=== PATIENT | female | born 1940 | race Caucasian/White ===

== ENCOUNTER → 2024-12-05 12:43 | Outpatient (REF) | payer MEDICARE, SELFPAY | LOC: RAD 12:43 | PROVIDERS: ATTENDING PHYSICIAN Internal Medicine Interventional Cardiology; FAMILY PHYSICIAN Family Medicine | DX: I35.0 Nonrheumatic aortic (valve) stenosis (principal) | CPT/HCPCS: 74174; 75572; Q9967 ==

== ENCOUNTER 2025-01-03 09:29 | Day surgery (SDC) | payer MEDICARE, SELFPAY ==
[2025-01-03] VITALS (24 sets, daily range): BP systolic 107–173; BP diastolic 60–95; BMI 34.5
--- NOTE | 2025-01-03 10:04 | ITS.CL.CATH ---
[facility] - Catheterization
Cardiac Catheterization
Procedure Report:
LEFT AND RIGHT HEART CATHETERIZATION
Date of Procedure: January 03, 2025
Referring: Dr. Dunia Savage MD
PROCEDURES:
1. Left heart catheterization, coronary angiogram.
2. Moderate sedation.
3. Right heart catheterization.
4. Intravascular Ultrasound (IVUS)
INDICATION: Ms. Ervin is a 84-year-old female with past medical history of hypertension, hyperlipidemia, paroxysmal atrial fibrillation on chronic anticoagulation with Xarelto, morbid obesity, stage IIIb CKD secondary to longstanding hypertension,
prediabetes, mild memory deficits, acquired hypothyroidism, bilateral carotid artery stenosis status post left carotid endarterectomy and right carotid stent, severe aortic stenosis with most recent echocardiogram showing a peak and mean transaortic
gradients of 72 and 46 mmHg
ACCESS: Right radial artery, 6Fr. sheath, under US guidance.
HEMODYNAMICS : (mmHg)
RA (m) : 13
RV (s/d,m) : 49/9, 17
PA (s/d, m) : 45/22, 30
PCWP (m) : 22
PA saturation: 67.5% on room air
AO saturation: 95.6% on room air
RA saturation: on room air
Cardiac Output : 6.79 L/min by Rodríguez
Cardiac Index : 3.5 L/min/m-2 by Rodríguez
Systemic vascular resistance: 990 dsc^(-5)
Pulmonary vascular resistance: 1.18 rocha unit
AO (s/d) : 182/67
LVEDP : 27
Severe aortic stenosis with mean gradient of 58mmHg and SARAH 0.52cm2
CORONARY FINDINGS
Dominance: Right
Left Main Trunk (LMT): The left main artery is a large-caliber vessel that gives off the LAD, left circumflex and ramus intermedius arteries. The ostial left main has eccentric 20 to 30% stenosis with a minimal luminal area by intravascular
ultrasound of 10 mm�.
Left Anterior Descending Artery (LAD): Large caliber tortuous vessel that gives off a large caliber diagonal as it continues in the interventricular groove to wraparound the apex. The LAD at the diagonal takeoff has a 30 to 40% stenosis. The
ostial diagonal branch has 20 to 30% stenosis
Ramus Intermedius (RI): The ramus intermedius artery is a medium caliber vessel with ostial 70% stenosis
Left Circumflex Artery (LCx): The left circumflex artery gives off a small caliber obtuse marginal branch and 2 medium caliber left posterolateral branches with no obstructive coronary artery disease. Moderately tortuous coronary arteries.
Right Coronary Artery (RCA): Large-caliber dominant vessel with mild 20% stenosis in the proximal portion.
SEDATION: 47 minutes of procedural sedation was utilized. IV Midazolam and IV Fentanyl were administered. An independent medical educator was present to assist with and help manage the patient's level of consciousness and physiologic status.
Closure Device: There were no immediate intra-procedural complications. The sheath was pulled in the slabber and a vascular-band applied to the right wrist for radial artery hemostasis using the patent hemostasis technique.
CONCLUSIONS
1. The ostial left main has eccentric 20 to 30% stenosis with a minimal luminal area by intravascular ultrasound of 10 mm�.
2. The LAD at the diagonal takeoff has a 30 to 40% stenosis. The ostial diagonal branch has 20 to 30% stenosis.
3. The ramus intermedius artery is a medium caliber vessel with ostial 70% stenosis.
4. Severe aortic stenosis with mean gradient of 58mmHg and SARAH 0.52cm2
RECOMMENDATIONS
1. Wean radial band per protocol. Monitor right hand perfusion and for bleeding from the radial site following removal of the vascular-band following trans-radial access.
2. Continue aggressive medical therapy and risk factor modification for secondary CAD prevention.
3. Hydrate with normal saline to mitigate the risk of contrast-induced acute kidney injury.
4. Plan for outpatient CT surgery consult to complete heart team workup in regards to transcatheter aortic valve replacement and discussion at the neck structural meeting
Smita Samayoa MD, [facility], [facility]
Copy to: Dr. Dunia Savage MD (crackling press operator) and Neftali Lindsay MD (PCP)
[2025-01-03 10:11] LABS: Hematocrit 30.6 % (37.0-47.0); Hemoglobin 10.0 g/dL (12.0-16.0); Mean Corp Hgb Conc. 32.7 g/dL (33.0-37.0); Mean Corpuscular Volume 90.3 fL (81.0-99.0); Platelet Count 227 10^3/uL (130-400); Red Cell Dist. Width 15.8 % (11.5-14.5)
[2025-01-03] MEDS: LOW STRENGTH ASPIRIN 324 MG PO (10:11)
[2025-01-03] MEDS: NSS 1000 IV (10:30)
[2025-01-03 13:07] LABS: ACT-LR - POC 334 Seconds (116-155)
[2025-01-03] MEDS: LASIX 20 MG IV (14:50)
== END 2025-01-03 19:38 | disposition home or self-care (01) ==
LOC: CATH 09:29
PROVIDERS: ATTENDING PHYSICIAN Internal Medicine Interventional Cardiology; FAMILY PHYSICIAN Orthopaedic Surgery Sports Medicine; OTHER PHYSICIAN Internal Medicine Cardiovascular Disease
DX: I25.10 Atherosclerotic heart disease of native coronary artery without angina pectoris (principal); I48.0 Paroxysmal atrial fibrillation; I10 Essential (primary) hypertension; Z79.01 Long term (current) use of anticoagulants; R73.03 Prediabetes; E78.5 Hyperlipidemia, unspecified; I65.23 Occlusion and stenosis of bilateral carotid arteries; I35.0 Nonrheumatic aortic (valve) stenosis
CPT/HCPCS: 92978; 99152; 99153; 85027; 93460; C1753; C1769; C1894

== ENCOUNTER 2025-01-08 09:40 | Emergency (ER) | payer MEDICARE, SELFPAY ==
[2025-01-08 09:43] VITALS: BP 214/79
[2025-01-08 11:14] VITALS: BP 165/112
--- NOTE | 2025-01-08 12:15 | ED.GENMED ---
History of Present Illness
General
Chief Complaint: Vascular Symptoms
Time Seen by Provider: 01/08/25 11:06
History of Present Illness
History of Present Illness:
84-year-old female presents to the emergency department for evaluation of right wrist and forearm pain and swelling for the past 5 days since undergoing cardiac catheterization via right radial approach. Pain is progressed up the arm since that
time. She has been on Xarelto since her catheterization. Denies any paresthesias or fingers. No fevers or chills
Review of Systems
Review of Systems
Allergies reviewed?: Yes
All Other Systems: ROS reviewed and negative except as documented in HPI and ROS
Phy Exam
Physical Exam
Physical Exam:
GEN: Well appearing, NAD, WDWN
HEENT: Oral mucosa moist, no scleral icterus
Cardiac: Regular rate
Lung: No respiratory distress, no tachypnea
MSK: Widespread ecchymosis extending from the right radial wrist to the mid upper arm, induration and tenderness particularly at the right radial access point
Skin: Good color, no pallor or jaundice, no rashes
Neuro: AO x3, moves all extremities freely
Psych: Calm, cooperative
Course
Orders/Labs/Results
Orders:
Orders
01/08/25 11:35
Vascular Exam Limited US [US Vascular Exam Limited] Urgent
Comment:
Reason For Exam: R radial cath site possible pseudo
Vital Signs
Initial and Last Documented VS:
Initial Vital Signs
Pulse Resp BP Pulse Ox
84 20 214/79 86
01/08/25 09:43 01/08/25 09:43 01/08/25 09:43 01/08/25 09:43
Last Documented Vital Signs
Pulse Resp BP Pulse Ox
77 20 165/112 86
01/08/25 11:14 01/08/25 09:43 01/08/25 11:14 01/08/25 12:16
MDM/Problems Addressed
MDM/Problems Addressed:
Ultrasound shows no evidence for pseudoaneurysm, bruising and ecchymosis is most likely on the basis of vascular trauma during her catheterization. Recommend supportive care
*Pulse Oximetry
SaO2: 86
Oxygen Mode of Delivery: Room air
Patient hypoxic: no
*Critical Care Note
Total Time (30-74mins, 75-104mins- exclusive of procedures): Not Applicable
ED Attending Note
-
Portions of this chart may have been created with voice recognition software.� Occasional wrong word or��sound alike� substitutions may have occurred due to the inherent limitations of voice recognition software.
Discharge Plan
Departure
Patient Disposition: Home (Routine Discharge)
Date of Disposition: 01/08/25
Time of Disposition: 13:07
Patient with high blood pressure during this ER visit?: No
Discharge Problem:
Traumatic ecchymosis of right forearm
Instructions: Wound Care for Arterial Puncture (DC)
Prescriptions:
No Action
lisinopril 20 mg Tablet
20 mg PO BID
famotidine 40 mg Tablet
40 mg PO DAILY PRN (Reason: gerd)
allopurinol 100 mg Tablet
100 mg PO DAILY
pantoprazole 20 mg Tablet,Delayed Release (Dr/Ec)
20 mg PO DAILY
metoprolol tartrate 50 mg Tablet
50 mg PO BID
furosemide [Lasix] 20 mg Tablet
20 mg PO DAILY
calcium carbonate-vitamin D3 500 mg-3.125 mcg (125 unit) Tablet
1 tab PO DAILY
vitamin M92-ulbcf acid
1,000 mcg PO DAILY
rosuvastatin 20 mg tablet
20 mg PO DAILY Qty: 30 5RF
rivaroxaban [Xarelto] 15 mg tablet
15 mg PO QPM Qty: 90 5RF
Referrals:
Luigi Lindsay MD [Family Provider, Family Practice]
Activity Restrictions/Additional Instructions:
Keep arm elevated and ice often
Use wrist brace as needed for comfort
Follow up with your facility sales and admin/cardiac surgeon
Interventions
Interventions:
*Risk Screen - Suicide Last Done: 01/08/25 11:16
*General Assessment Last Done: 01/08/25 11:16
*Neglect/Abuse Screening Last Done: 01/08/25 11:16
*ED- Fall Risk Assessment Last Done: 01/08/25 11:16
*Nursing Disposition Last Done: 01/08/25 13:44
ED-Skin Assessment Last Done: 01/08/25 11:14
ED-Peripheral Vascular Assessment Last Done: 01/08/25 11:14
ED- Pulmonary Assessment Last Done: 01/08/25 11:17
ED- Cardiac Assessment Last Done: 01/08/25 11:17
Discharge Date and Time
Discharge Date/Time: 01/08/25 13:45
Print Language: QATARI
== END 2025-01-08 13:45 | disposition home or self-care (01) ==
LOC: EMR 09:40
PROVIDERS: EMERGENCY PHYSICIAN Emergency Medicine; FAMILY PHYSICIAN Family Medicine
DX: S50.11XA Contusion of right forearm, initial encounter (principal); L76.32 Postprocedural hematoma of skin and subcutaneous tissue following other procedure; Y84.0 Cardiac catheterization as the cause of abnormal reaction of the patient, or of later complication, without mention of misadventure at the time of the procedure; Z79.01 Long term (current) use of anticoagulants
CPT/HCPCS: 99284; 93926

== ENCOUNTER 2025-02-22 04:57 | Outpatient (REF) | payer MEDICARE, SELFPAY ==
[2025-02-13 09:33] VITALS: BMI 34.3
[2025-02-13 10:35] LABS: Urine Character Clear (Clear)
[2025-02-13 10:42] LABS: INR 1.14; PT 14.9 Sec (11.4-14.6)
[2025-02-13 10:58] LABS: Hematocrit 28.8 % (37.0-47.0); Hemoglobin 9.6 g/dL (12.0-16.0); Mean Corp Hgb Conc. 33.3 g/dL (33.0-37.0); Mean Corpuscular Volume 92.0 fL (81.0-99.0); Nucleated Red Blood Cells % 0 %; Platelet Count 207 10^3/uL (130-400); Red Cell Dist. Width 15.9 % (11.5-14.5)
[2025-02-13 11:01] LABS: ALT (SGPT) 16 U/L (0-35); AST (SGOT) 21 U/L (14-36); Albumin 3.7 g/dl (3.5-5.0); Alkaline Phosphatase 76 U/L (38-126); Blood Urea Nitrogen 37 mg/dl (7-17); Calcium 9.7 mg/dl (8.4-10.2); Carbon Dioxide 24 mmol/L (22-30); Chloride 109 mmol/L (98-107); Estimated Creatinine Clearance 34 ml/min; Glucose 85 mg/dl (70-99); Potassium 4.7 mmol/L (3.5-5.1); Sodium 138 mmol/L (135-145); Total Protein 6.3 g/dl (6.3-8.2); eGFR 40.80
--- NOTE | 2025-02-13 11:37 | CM ---
Met with Mrs. Ervin and her [id number] in [facility]. She states prior to admission she resides with her spouse in a one stroy home with four steps to enter. She states prior to admission she ambulates with a single point cane in the community but
does not use anything in the home. She states she has a single point cane at home and no other DME. She states she has a prescription plan. She states her spouse will be home to assist in her care if needed. She also states her son and
[id number] resides nearby and can assist also if needed. The discharge plan is to return home with her spouse and a home visit by the Transitional Care Nurse when medically stable.
We reviewed pre-op and post-op routines. We reviewed the shower instructions. She has the soap, written instructions and the TAVE Educational Booklet. We also reviewed restrictions including driving and lifting restrictions. We discussed a home
visit by the Transitional Care Nurse. She is agreeable to a home visit. The plan is for TAVR on February.
[2025-02-13 11:46] LABS: Glycohemoglobin (HgbA1c) 5.5 % (4.0-5.6)
[2025-02-13 12:00] LABS: Urine Squamous Cell 16-20 /LPF (Few)
[2025-02-13 12:01] LABS: Urine Red Blood Cell 0-2 /HPF (0-2)
[2025-02-22 05:05] VITALS: BMI 34.0
[2025-02-22 05:08] VITALS: BP 155/66
[2025-02-22 05:11] VITALS: BP 169/56
--- NOTE | 2025-02-22 06:14 | PTCARENOTE ---
Patient received as direct admit for TAVR procedure today. Ambulated independently with a cane into the room. Required some assistance to get undressed. Voided in the bathroom without difficulty but does report some stress incontinence. The patient
is alert to self, place, and time but does seem forgetful. The patient reported conflicting last taken times for her medications including metoprolol and lisinopril. She initially reported taking metoprolol and lisinopril this morning and then later
reported she took them yesterday. The patient did not take aspirin this morning. She did report taking Xarelto yesterday. CT surgery SOFIA Katz notified regarding the medications. A bed alarm was placed due to forgetfulness. Pupils are 5mm,
equal, and brisk. Equal supercharger mechanic strength bilaterally upper and lower extremities. HR 90s, murmur noted, +1 LE pitting edema noted, pedal pulses palpable. Right base with fine crackles, SaO2 99% on room air. The patient endorses being NPO since
midnight. Right wrist 20G PIV placed. Surgical site clipped. CHG bath completed. Plan of care discussed. Call gallardo within reach. Care ongoing.
--- NOTE | 2025-02-22 06:52 | W.DCSUMMARY ---
Discharge Summary
Discharge Data
Date of Admission: 02/22/25
Date of Discharge: 02/22/25
-
Pending Results: No
Hospital Course
84-year-old female was admitted for elective TAVR on 02/22/2025. However patient states she had taken last dose of Xarelto yesterday. Drs. Samayoa/Zaira cancelled procedure and [id number] notified. TAVR procedure rescheduled for 02/28/2025. Last
dose of Xarelto will be 02/24/2025.
Discharge Plan
-
Patient Disposition: Home (Routine Discharge)
Discharge Diagnosis/Procedures: TF-TAVR
Condition: Good
Diet: Low Cholesterol and 2 Gram Sodium
Activity: As tolerated
Driving Restrictions: As prior to admission
Bathing Restrictions: OK to Shower
Others Tests: Please call Dr. Savage's office to schedule an echocardiogram for 30 days after your TAVR procedure.
Other Services: Cardiac Rehab
Wound Care: Please do not apply lotions, creams or powders to groin areas. Please monitor for increased redness, pain, swelling or drainage. Notify your doctor if any occur.
Specialty Instructions: Weigh Daily- Call MD for wt gain/loss 3 lbs overnight/5 lbs in 1 week
Referrals:
Luigi Lindsay MD [Family Provider, Family Practice]
Additional Discharge Medication Instructions: last dose Xarelto 02/24>rescheduled TAVR 02/28
Prescriptions:
Continued
famotidine 40 mg Tablet
40 mg PO DAILY PRN (Reason: gerd)
allopurinol 100 mg Tablet
100 mg PO DAILY Qty: 0 0RF
calcium carbonate-vitamin D3 500 mg-3.125 mcg (125 unit) Tablet
1 tab PO DAILY Qty: 0 0RF
furosemide [Lasix] 20 mg Tablet
20 mg PO DAILY Qty: 0 0RF
lisinopril 20 mg Tablet
20 mg PO BID Qty: 0 0RF
metoprolol tartrate 50 mg Tablet
50 mg PO BID Qty: 0 0RF
pantoprazole 20 mg Tablet,Delayed Release (Dr/Ec)
20 mg PO DAILY Qty: 0 0RF
vitamin M29-puvdu acid
1,000 mcg PO DAILY Qty: 0 0RF
rosuvastatin 20 mg tablet
20 mg PO DAILY Qty: 30 5RF
Xarelto 15 mg tablet
15 mg PO QPM Qty: 90 5RF
Discharge Orders:
Discharge Patient (As Directed); Ordered 02/22/25
Ordered By: Sylvia Allen
Discharge Date and Time
Print Language: MOHAWK
[2025-02-22 07:15] VITALS: BP 155/61
[2025-02-22 07:16] VITALS: BP 155/61
--- NOTE | 2025-02-22 09:00 | PTCARENOTE ---
Pt received this am with no c/o of any pain or sob. Room air sat 98%. TAVR cancelled and rescheduled for next week due to pt being unsure when she last took her xarelto. Pt discharged to home with her daughter in law. Pt and daughter in law
instructed on when to stop the xarelto for upcoming TAVR.
== END 2025-02-22 08:42 | disposition home or self-care (01) ==
LOC: SDSPAT 04:57
PROVIDERS: ATTENDING PHYSICIAN Thoracic Surgery (Cardiothoracic Vascular Surgery); FAMILY PHYSICIAN Family Medicine; OTHER PHYSICIAN Internal Medicine Cardiovascular Disease
DX: I35.0 Nonrheumatic aortic (valve) stenosis (principal)
CPT/HCPCS: 36415; 71046; 80053; 81003; 81015; 82248; 83036; 83880; 85025; 85610; 86850; 86900; 86901; 86920; 87070; 87086; 93005

== ENCOUNTER 2025-02-28 04:57 | Inpatient (IN) | payer MEDICARE, SELFPAY ==
[2025-02-28] VITALS (39 sets, daily range): BP systolic 98–183; BP diastolic 34–111; BMI 33.6
[2025-02-28] MEDS: LOW STRENGTH ASPIRIN 81 MG PO (05:06)
--- NOTE | 2025-02-28 05:59 | PTCARENOTE ---
Rec'd pt as SDS admission for TAVR. PT AAO*3 but forgetful, SR on TELE monitor, and VSS. Pt admission complete, IV initiated, and pt oriented to unit. Surgical prep complete including groin hair being clipped and CHG bathing clothes. Pt and
daughter confirmed home medication rec. Pt given ASA 81 Mg as ordered. PT neuro check complete. Pt now resting with call gallardo in reach.
--- NOTE | 2025-02-28 06:21 | W.CVOR.SURPR ---
CVOR Surgeon Immed Pre Op
-
I have examined this patient prior to performance of the scheduled procedure.
The patient's condition is unchanged from the time of the dictated/written History and
Physical and the patient is able to undergo the scheduled procedure.
TF TAVR Full Rescue
[2025-02-28] MEDS: ANCEF 10 IV ×2 (07:43→08:43)
[2025-02-28 08:40] LABS: ACT-LR - POC 295 Seconds (116-155)
--- NOTE | 2025-02-28 08:54 | W.PN.CT.SURG ---
Addendum entered and electronically signed by Luigi Meneses MD 02/28/25 09:15:
Serial #: [id number]
Original Note:
CT Surgery Operative Note
-
OPERATIVE REPORT
Preoperative Diagnosis: Severe aortic valve stenosis, symptomatic
Postoperative Diagnosis: Same
Procedure(s) Performed: Right trans femoral TAVR with a 29mm Medtronic Evolut FX+ device with Balloon Valvuloplasty using a 20mm balloon
Date of Procedure: 02/28/25
Comorbidities:
1. Severe symptomatic aortic stenosis
2. CKD
3. Baseline anemia
4. Hypertension
5. Hyperlipidemia
6. A-fib on chronic anticoagulation
Cardiac Surgeon: Luigi Meneses MD, MS
Online Editor: Smita Samayoa MD
Anesthesia: Conscious Sedation, Local
EBL: 100cc
Products: none
Implant: Medtronic Evolut 29 mm, FX+ SN: [id number]
Indication(s) for Procedures: 84-year-old female with severe aortic stenosis. Symptomatic. CT-TAVR protocol revealed acceptable anatomy for a self-expanding TAVR valve.
TAVR gradient (mmHg): 7-9mmHg
Heparin Dose: 6000units
Protamine Dose: 40mg
Final Valve Positioninmm:2mm
Findings: Preoperative LVEF was 65% and was 65% following TAVR without inotropic support. Function was overall normal without regional wall motion abnormalities or dyskinesia. The aortic valve was well seated with no PVL. The patient did not require
pacing postoperative and was in sinus rhythm. There was successful placement of 29 mm Evolut FX+ TAVR valve without acute complications. LVEDP was found to be 22 mmHg pre-TAVR deployment indicating is that she was likely dehydrated and needed
volume.
Access:
1. Device -right common femoral artery, perclose x 3 (initial 1 was thought to have failed)
2. Pigtail -left common femoral artery + 6Fr angioseal
3. Transvenous Pacer -left common femoral vein
Description of Procedure: The patient was taken to the laboratory equipment cleaner. Their identity and procedure to be performed were verified and they were positioned supine on the laboratory equipment cleaner table. Induction via conscious sedation with local analgesia. The patient was
then prepped and draped from chin to thigh in a sterile fashion. A preoperative time-out was performed with all members of the team present. Using fluoroscopy, bilateral femoral heads and their margins were identified. Arterial and venous access
were done with a micropuncture needle with Seldinger technique. Test pacing revealed capture with excellent threshold. Angiography confirmed proper puncture site and femoral artery integrity. 3 Per-Close devices were used on the TAVR side. An AL1
catheter was used to deliver a extrastiff wire and insertion of the working sheath. An AL1 catheter with a straight stiff wire was used to access the LV. The valve was prepped and mounted on to the device carrier. An ACT of >250 was achieved. We
verified x 3 under fluoroscopy that the valve was mounted correctly with paddles in appropriate position. We than set our parameters to achieve a co-planar view with the pigtail positioned in the NCC. The balloon was then inserted into the working
sheath and across the shoalwater valve. Under rapid pacing under 80 beats minute we did a balloon valvuloplasty with good effect. There was rapid recovery of vital signs. We then replaced the working sheath for the device inline sheath. We advanced
the device with it's in-line sheath into the descending thoracic aorta and over the arch into the root and positioned across the aortic valve. Contrast fluoroscopy was used to visualize the prosthesis across the valve. We performed a quick
pre-deployment time out. We verified positioning based on the pigtail and gentle contrast puffs. The valve was slowly deployed to just before annular contact. We paused here and verified positioning in our cusp overlap view. We then rotated SUDANESE and
removed any parallax from the valve. Contrast was used to verify the LCC was appropriate in height. It was and so we slowly continued to deploy the valve until the crowns and paddles were free from the device. At this point the valve was functioning
and pacing was stopped. We slowly continued to deploy the valve until the crowns and paddles were free from the device. The deployment device was withdrawn into the descending thoracic aorta while maintaining wire access across the valve. A
transthoracic echocardiogram was performed . The pigtail was re-positioned at the level of the crown of the valve and angiography revealed excellent placement and seating of the valve at the annulus. The device was removed from the groin as we
cinched down the perclose devices while maintaining wire access. There was acceptable hemostasis. The pigtail was repositioned into the descending/abdominal and runoff aortogram was performed. There was no significant stenosis or dissection of the
bilateral iliofemoral systems with excellent runoff to the SFAs. All wires were removed and perclose snugged and cut. There was acceptable hemostasis of bilateral groins.
All instrument, sponge, and needle counts were confirmed to be correct x 2 at the end of the operation. The patient was transferred to the cardiac intensive care unit in stable condition.
I, Dr. Luigi Meneses, was present, scrubbed for, and performed all critical elements of this procedure.
Luigi Meneses MD, MS
Cardiothoracic Surgeon
[facility]
This operative dictation was created using the [employer] dictation system. Please excuse any grammatical, typographical, or 'sound alike' errors
[2025-02-28] MEDS: LEVOPHED 250 IV (09:42)
--- NOTE | 2025-02-28 09:50 | ITS.CL.TAVR ---
Diagnostic Assistant - TAVR Report
TAVR PRocedure
Procedure Report:
TRANSCATHETER AORTIC VALVE REPLACEMENT
Date of Procedure: February 28, 2025
Referring: Dunia Savage MD
Operators: Drs. Smita Samayoa and Luigi Meneses
PROCEDURE PERFORMED:
1. Successful placement of 29 mm Medtronic Evolut FX+ valve viaright femoral artery.
2. Ultrasound-guided access.
3. Bilateral femoral angiography.
ACCESS:
1. Right common femoral artery, 8 Samoan sheath, under ultrasound guidance using a micropuncture kit.
2. Left common femoral vein, 6 Samoan sheath, under ultrasound guidance using a micropuncture kit.
3. Left common femoral artery, 6 Samoan sheath, under ultrasound guidance using a micropuncture kit.
Ultrasound was utilized for vascular access. The right and left femoral artery and vein were visualized under ultrasound, and the vessels was patent and arteries were pulsatile. An image was stored permanently in the patient's medical record.
Under direct ultrasound guidance, sheaths as noted above were inserted into the right FA and left femoral artery and vein using a micropuncture kit through a modified Seldinger technique.
PREPROCEDURE NYHA CLASS: II
DESCRIPTION OF PROCEDURE: The patient was referred for assessment of severe symptomatic aortic stenosis and following a comprehensive evaluation it was felt that transcatheter aortic valve replacement (TAVR) would be the most appropriate treatment.
Informed consent was obtained prior to the procedure. A 'time-out' was called and the procedural plan was verbally confirmed by anesthesia, surgery, perfusion, and center medical and lab director staff.
Arterial and venous access were obtained in the left common femoral artery and vein using a micropuncture technique and 6 Fr. sheaths were inserted. A 5 Fr. transvenous pacing wire was then advanced to the right ventricle where excellent pacing
thresholds were obtained.
A 5 Fr. pigtail catheter was then advanced to the proximal ascending aorta / noncoronary cusp where angiography was performed to define the the cusp overlap view isolating the non-coronary cusp with overlap of the right and left coronary cusps. The
cusp overlap view was RAO10 / CAU 27.
Ultrasound guidance was then used to obtain arterial access in the right common femoral artery and a 6 Fr. sheath was inserted. Angiography was performed and the arteriotomy site appeared appropriate for preclosure with two Perclose devices. An 8
Samoan sheath was then inserted back into the common femoral artery over a J-tipped guidewire. An AL1 catheter was then advanced to the proximal descending aorta. A Double-curve Lunderquist 0.035' wire was placed in the proximal descending
thoracic aorta to facilitate delivery of a 14 Fr / 13 cm Cook sheath.
An AL1 catheter was then positioned just above the aortic valve and a 0.035' Straight tip wire probed the aortic valve and crossed the stenotic leaflets. The AL1 was then advanced to the mid left ventricle. A long J-wire was advanced to the left
ventricular apex and was followed to the apex with an angled pig-tail catheter. Invasive left ventricular end-diastolic pressure is 22 mmHg. The Double Curve Lunderquist was then positioned in the left ventricular apex. The Evolut FX+ stent was
inspected under fluoroscopy/cine while rotating the stent delivery system. The stent paddles were within the pocket and no significant crown overlap noted.
Balloon predilation was performed with rapid pacing using a 20 mm TRUE balloon. The balloon was removed and the 14 Fr. sheath was exchanged for the Evolut InLine delivery system. The 29 mm Evolut FX+ stent was advanced across the stenotic
leaflets. The Evolut FX+ valve was slowly deployed in the leaflet overlap view until the stent flared achieving contact at 2-3mm below the noncoronary cusp. The stent continued to flared achieving contact with the left coronary cusp. The image
intensifier was rotated to an BRENNA position to remove parallax from the valve with continued valve deployment with controlled pacing. We transitioned quickly through the rumble strips on the InLine delivery sheath until the marker band was
positioned just below the paddle attachment. Angiography was performed. The valve structure was released from the delivery system when we were happy with the valve position. Post deployment angiography had only mild aortic insufficiency and a
mean gradient of 9 mmHg.
The Evolut FX+ delivery system capsule was reunited to the body of the delivery system. The Evolut InLine sheath was removed and the Perclose knots were advanced to the arteriotomy site resulting in excellent hemostasis.
Femoral angiography: Femoral arteriotomy bilaterally is noted to be above the bifurcation and below the inferior epigastric artery. There is minimal luminal irregularities in the visualized external iliac and femoral vessels.
Fluoro Time (min): 11.8, Dose (mGy): 211, DAP (Gy.cm2) : 19.6
CONCLUSIONS:
1. Severe symptomatic aortic stenosis. Successful deployment of a 29 mm Evolut FX+ valve with minimal aortic insufficiency post procedure
2. Successful arteriotomy closure with 2 Perclose devices.
3. Acute on chronic diastolic heart failure with LVEDP of mmHG.
Smita Samayoa MD, [facility], [facility]
Copy to: Dunia Savage MD
[2025-02-28 10:05] LABS: ACT-LR - POC > 397 Seconds (116-155)
--- NOTE | 2025-02-28 10:43 | CM ---
pt in OR today, cm following
[2025-02-28] MEDS: PROTONIX 20 MG PO (11:26)
[2025-02-28] MEDS: ZESTRIL 10 MG PO (12:56)
[2025-02-28] MEDS: ANCEF 5 IV (15:17)
[2025-02-28 17:47] LABS: Blood Urea Nitrogen 41 mg/dl (7-17); Calcium 8.9 mg/dl (8.4-10.2); Carbon Dioxide 24 mmol/L (22-30); Chloride 106 mmol/L (98-107); Estimated Creatinine Clearance 30 ml/min; Glucose 246 mg/dl (70-99); Potassium 4.4 mmol/L (3.5-5.1); Sodium 138 mmol/L (135-145); eGFR 37.33
--- NOTE | 2025-02-28 19:07 | PTCARENOTE ---
~0700: Handoff report received from nightshift RN. Patient taken to [facility] for TAVR.
~4115-7650: Patient returned from [facility] s/p TAVR in stable condition. Bedrest and flat at this time. AOx4, arouses to voice and follws commands, NSR 60s-70s on tele, SPB 140s-150s MAPs 70s. Levo initially infusing @ 3 upon arrival to unit, however
levo gradually titrated off maintining MAP >65 per order. Patient 100% on 2L NC, attempt to wean to RA but patient would desat to 60s with hx MERLYN. B/L groin sites CDI and soft with no bleeding or hematoma at this time. Patient oriented to room and
call gallardo system and instructed to remains flat until 1300 per order. All needs met at this time, call gallardo within reach.
~8366-2611: Pt SBP 170s, Thalia Peterson PA-C made aware, orders placed.
~4147-3484: Patient resting at bedside. Lunch ordered and assit provided to help patient OOB to chair with Ax1 and cane. B/L groin sites remains soft, CDI at this time. AOx4, NSR 70s, SBP 140s, RA satting mid 90s. patient family visiting at this
time.
~4970-2618: Patient SBP remains 140s-160s at this time, Thalia Peterson PA-C made aware, PRN hydralazine ordered for SBP >170.
~8170-1032: BMP drawn and sent to lab. Pt Ax1 OOB sitting in chair at this time.
~9746-8077: Ax1 to bathroom. Denies pain at this time. Groin sites CDI and soft. Remains NSR 70s. All needs met at this time, call gallardo within reach. Handoff report given to nightshift RN.
--- NOTE | 2025-02-28 20:28 | PTCARENOTE ---
Rec'd pt at change of shift. Pt AAO*3, VSS, and SR on tele monitor. Pt denies any pain or discomfort. BL groins sites CDI. Pt agreed to activity restrictions and now resting with call gallardo in reach. See MAR and flowchart for full pt care and
assessment.
--- NOTE | 2025-03-01 00:30 | W.PN.CT ---
Today's Communication / Plan
-
-pod #1
-no issues overnight
-nsr 80s overnight. No eze or pauses
-new 1st degree AVB
-Echo today
-current meds (Xarelto 15 qpm, Lopressor 50 bid, Lisinopril, Lasix 20 , Crestor, Protonix)
-encourage IS, OOB, ambulate
Assessment / Plan
-
- Severe symptomatic aortic valve stenosis- s/p Right trans femoral TAVR with a 29mm Medtronic Evolut FX+ device with Balloon Valvuloplasty using a 20mm balloon on 02/28/25, pod #1
- Intraop TTE: LVEF was 65% pre and post TAVR without inotropic support, no regional wall motion abnormalities or dyskinesia. The aortic valve was well seated with no PVL.
- LVEDP 22
- CKD 3b (Cr 1.3 pre)
- Baseline preop anemia
- Hypertension
- Hyperlipidemia
- Paroxysmal A-fib -on chronic anticoagulation (Xarelto)
Discussed patient care with: Nursing and Care Team
Subjective
-
Date of Service: March 01, 2025
Objective Data
Vital Signs
Vital Signs
Temp Pulse Resp BP Pulse Ox
98.3 F 85 16 147/47 95
02/28/25 22:38 02/28/25 22:38 02/28/25 22:38 02/28/25 22:38 02/28/25 23:49
CT Intake/Output/Weight
02/28/25 02/28/25 03/01/25
06:59 18:59 06:59
Intake Total 480 / 480
Output Total 450 / 750 300 / 750
Balance -450 / -270 180 / -270
SaO2: 95
Physical Exam
-
General: Awake and AOx3
Cardiovascular: Regular rate & rhythm, Murmur (1/6 systolic murmur) and No Rub
Respiratory: Clear and Decreased Breath Sounds
Incision: Clean (groins are cdi, soft, nontender, no hematoma b/l)
Extremities: Edema +1 (2+DPs b/l)
Abdomen: soft, nontender, nondistended, + bowel sounds
Data Reviewed
-
Lab Results: Results Reviewed
Medications: Active Meds Reviewed
Chest X-Ray: Report Reviewed and Image Reviewed
ECG: Report Reviewed and Image Reviewed
[2025-03-01] MEDS: TYLENOL 650 MG PO (01:16)
[2025-03-01 04:02] VITALS: BP 159/87
[2025-03-01 05:14] LABS: Blood Urea Nitrogen 42 mg/dl (7-17); Calcium 8.9 mg/dl (8.4-10.2); Carbon Dioxide 23 mmol/L (22-30); Chloride 110 mmol/L (98-107); Estimated Creatinine Clearance 25 ml/min; Glucose 116 mg/dl (70-99); Potassium 4.5 mmol/L (3.5-5.1); Sodium 137 mmol/L (135-145); eGFR 29.57
[2025-03-01 05:16] LABS: Hematocrit 26.6 % (37.0-47.0); Hemoglobin 9.0 g/dL (12.0-16.0); Mean Corp Hgb Conc. 33.8 g/dL (33.0-37.0); Mean Corpuscular Volume 89.9 fL (81.0-99.0); Platelet Count 184 10^3/uL (130-400); Red Cell Dist. Width 15.5 % (11.5-14.5)
[2025-03-01 06:57] VITALS: BP 160/46
[2025-03-01] MEDS: OSCAL CAL 500 500 MG PO (08:38)
[2025-03-01] MEDS: LASIX 20 MG PO (08:39)
[2025-03-01] MEDS: CRESTOR 20 MG PO (08:40)
[2025-03-01] MEDS: PROTONIX 20 MG PO (08:40)
[2025-03-01] MEDS: ZYLOPRIM 50 MG PO (08:40)
[2025-03-01] MEDS: VITAMIN B-12 500 MCG PO (08:40)
[2025-03-01] MEDS: ZESTRIL 20 MG PO (08:41)
[2025-03-01] MEDS: LOPRESSOR 50 MG PO (08:41)
--- NOTE | 2025-03-01 08:58 | W.PN.CARDCBS ---
Addendum entered and electronically signed by Dennis Arriaza MD 03/01/25 17:52:
I saw and examined the patient.
The Cloth Checker's note was reviewed and I agree with the note.
Comment:
GEN: No distress, awake, Ox3
HEENT: supple, anicteric, mmm
LUNGS: CTA, no wheezes/rales
CV: Reg, S1/S2, 1/6 syst LSB, no gallop
ABD: soft, BS+, NT/ND
EXT: No edema
NEURO: Gross non-focal
SKIN: No rash
Plan:
Doing well status post TAVR. Postprocedure echo remains stable with mean gradient of 11 and trace aortic regurgitation
Creatinine at 1.7. Okay for discharge with a repeat basic metabolic panel in 1 week.
Continue metoprolol, lisinopril, and low-dose Lasix for now.
Original Note:
Today's Communication / Plan
-
doing well post TAVR
Cr up slightly overnight. repeat BMP early next week. may decrease lisinopril dose and consider addition of norvasc
planned for DC to home later today
OP follow up with [facility]
Impression / Plan
-
Primary School Admissions Representative: Dr. Dunia Savage of [facility]
Assessment:
- Severe symptomatic s/p R TF TAVR 29mm Medtronic Evolut FX+ device with Balloon Valvuloplasty 02/28/25
- CKD 3b
- Chronic anemia
- Hypertension
- Hyperlipidemia
- Paroxysmal A-fib
- Chronic xarelto therapy
Echo 02/28/2025: EF 70 to 75%, mild concentric LVH, number 29 mm Medtronic Evolut TAVR with peak/mean gradients 15/9 mmHg, no AR seen, no pericardial effusion
ECHO 03/01/25: Well-seated normally functioning bioprosthetic TAVR valve with trace paravalvular leak, no pericardial effusion, no significant change compared to 02/28
Plan:
- Patient's status post right transfemoral TAVR on 02/28/2025
- Doing well overnight
- Bilateral groin sites soft, with dressing clean dry and intact
- In sinus rhythm with PVCs on review of telemetry overnight. EKG sinus rhythm with first-degree AV block and evidence of LVH
- She required low-dose Levophed for a short time perioperatively, however then with hypertension last evening. BPs remain suboptimal overnight. She is now back on outpatient regimen of Lopressor 50 mg twice daily, lisinopril 20 mg twice daily,
Lasix 20 mg daily. may need to decrease lisinopril dosing. consider addition of norvasc
- She has baseline CKD stage IIIb, Cr was 1.3 on 02/13/25. Creatinine bumped overnight from 1.4-1.7. Would repeat outpatient BMP early next week for reassessment
- She has chronic anemia. Hemoglobin appears stable at 9. Back on outpatient Xarelto 15 mg every afternoon
- ambulate
- Outpatient follow-up with [facility]
- planned for DC to home later today
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
Progress Note - School Admissions Representative
Subjective
Date of Service: March 01, 2025
feeling well. no issues overnight noted
Objective
Labs:
03/01/25 04:14
03/01/25 04:14
Labs
Hgb 9.0 g/dL (12.0-16.0) L 03/01/25 04:14
Hct 26.6 % (37.0-47.0) L 03/01/25 04:14
Plt Count 184 10^3/uL (130-400) 03/01/25 04:14
Sodium 137 mmol/L (135-145) 03/01/25 04:14
Potassium 4.5 mmol/L (3.5-5.1) 03/01/25 04:14
BUN 42 mg/dl (7-17) H 03/01/25 04:14
Creatinine 1.7 mg/dL (0.6-1.0) H 03/01/25 04:14
Glucose 116 mg/dl (70-99) H 03/01/25 04:14
Vital Signs and I&O:
Vital Signs
Temp Pulse Resp BP Pulse Ox
97.8 F 76 20 160/46 97
03/01/25 06:56 03/01/25 08:41 03/01/25 06:56 03/01/25 08:41 03/01/25 06:56
Vital Signs
Temp Pulse Resp BP Pulse Ox
97.8 F 76 20 160/46 97
03/01/25 06:56 03/01/25 08:41 03/01/25 06:56 03/01/25 08:41 03/01/25 06:56
Intake & Output
02/27/25 02/28/25 03/01/25 03/02/25
07:59 07:59 07:59 07:59
Intake Total 480 / 480
Output Total 750 / 750
Balance -270 / -270
Physical Exam
Physical Exam
GEN: No distress, awake, alert, oriented x3
HEENT: supple, anicteric, mmm, eomi
LUNGS: CTA B/L, no wheezes
CV: Reg, S1/S2, 1/6 syst LSB
ABD: soft, BS+, NT/ND
EXT: No cyanosis, clubbing, edema
NEURO: Gross non-focal
SKIN: Warm, pink, dry. No rash. B/L groin sites soft, c/d/i
--- NOTE | 2025-03-01 09:36 | W.PN.ANS.POP ---
Anesthesia Post Operative
- Anesthesia Post Op Note
Vital Signs Stable-See Nursing Note: Yes
Airway Patent: Yes
Adequate Pain Control: Yes
Change in Mental Status: No
Current Postoperative Nausea & Vomiting: No
Anesthesia Complications: No
General Anesthetic Recall: No
Unplanned Admission: No
Post Op Hydration Adequate: Yes
- -
Pt awake/alert, OOB with no anesthesia related c/o at time of post op visit.
[2025-03-01 09:49] VITALS: BP 143/90
[2025-03-01 10:00] VITALS: BP 146/67
[2025-03-01 10:02] VITALS: BP 143/58; BP 146/67; PULSE 64; O2SAT 94; O2SAT 96
--- NOTE | 2025-03-01 10:50 | W.DCSUMMARY ---
Discharge Summary
Discharge Data
Date of Admission: 02/28/25
Date of Discharge: 03/01/25
-
Pending Results: No
Hospital Course
Primary care physician: Dr. Luigi Lindsay
Outpatient director biologics: Dr. Dunia Savage
Inpatient consultants: [facility]
Procedures:
1. Right Transfemoral TAVR with #29 mm Medtronic Evolut FX+ and balloon valvuloplasty (20 mm balloon) with Dr. Luigi Meneses & Dr. Smita Samayoa
Primary Diagnosis:
1. Severe, Symptomatic Aortic Stenosis
Secondary Diagnoses:
1. Acute on Chronic Heart Failure
2. CKD 3b (baseline Cr 1.3)
3. Baseline pre-operative anemia
4. Hypertension
5. Hyperlipidemia
6. Paroxysmal A-fib - on chronic anticoagulation (Xarelto)
HPI: Ms. Katya Ervin is an 84-year-old female who underwent outpatient consultation with the structural heart team at [facility] for her known severe, symptomatic aortic stenosis. Please see physians pre-operative history and physical for complete
presentation prior to procedure. She was referred for elective TAVR on 02/28/[address] Luigi Meneses & Dr. Smita Berger
Hospital course: Patient was electively admitted on 02/28/2025 and underwent TAVR via right femoral artery with successful placement of 29 mm Medtronic Evolut FX+ valve with Dr. Luigi Meneses & Dr. Smita Samayoa. Intraoperative TTE showed LVEF of 65%
with no RWMA and well-seated AV with no PVL and estimated LVEDP of 22. Please see surgeons and interventional list notes for complete intraoperative events. Intraoperatively, there were no significant events and the patient went directly to Cath
Lab recovery. Bilateral groin sites remained stable and she was transferred to the interventional unit for the remainder of her recovery. On postoperative day 1, her home medications were resumed. Her EKG showed sinus rhythm in 90s with
first-degree AV block (TUNG 226) and LVH with repolarization abnormality (R in aVL). Her chest x-ray did not show any acute cardiopulmonary process. Per TTE showed LVEF of 70 to 75%, appropriate functioning TAVR valve with peak/mean gradient of
15/9 respectively and no AI or pericardial effusion. She was ambulating without issue. Her groin sites remained stable and were redressed without any signs of hematoma. Her creatinine was 1.7 from her preoperative level of 1.3. She was sent home
with a prescription to obtain a BMP in 1 week with results sent to her primary director biologics Dr. Savage due to her bump in creatinine. Education was provided on wound care of bilateral groin sites. The transitional care nursing team will follow-up
with patient in 2 to 3 days from discharge. She will follow-up with her outpatient director biologics within 30 days and will receive a TTE to assess her valve. She was further advised to follow-up with her PCP in 4 to 6 weeks from discharge.
Home medication changes:
- see list provided below
Discharge Plan
-
Patient Disposition: Home (Routine Discharge)
Discharge Diagnosis/Procedures: Right Transfemoral TAVR (29 mm Medtronic Evolut FX+) with pre-baloon valvuloplasty (20mm) with Dr. Meneses & Dr. Samayoa
Condition: Good
Diet: Low Fat, Low Cholesterol, Low Sodium and Restrict fluids to 48 oz
Activity: No strenuous activity
Additional Activity: No lighting anything > 10 lbs for 1-week while procedural sites heal.
Driving Restrictions: No driving for 2 weeks
Bathing Restrictions: No soaking in tub/bath/pool for 1-week.
Blood Work: Obtain BMP in 1-week, results will be sent to Dr. Savage.
Other Services: Cardiac Rehab
Specialty Instructions: Weigh Daily- Call MD for wt gain/loss 3 lbs overnight/5 lbs in 1 week
Activity Restrictions/Additional Instructions:
Please call [facility] to get scheduled. P: [phone]
Referrals:
CT Transitional Care Nurse [Outside]
Referral Note:
The Cardiothoracic Transitional Care Nurse will call you to set up a visit in 1-2 days.
Olivia Levin CRNP [Non-Admitting Privileges, Cardiology] - 03/27/25 11:00 am
Luigi Lindsay MD [Family Provider, [facility]]
Prescriptions:
New
acetaminophen 325 mg Tablet
650 mg PO Q6HPRN PRN (Reason: PRIETO, mild pain, or fever >101F) Qty: 0 0RF
Continued
famotidine 40 mg Tablet
40 mg PO DAILY PRN (Reason: gerd)
lisinopril 20 mg Tablet
20 mg PO BID Qty: 0 0RF
allopurinol 100 mg Tablet
100 mg PO DAILY Qty: 0 0RF
metoprolol tartrate 50 mg Tablet
50 mg PO BID Qty: 0 0RF
furosemide [Lasix] 20 mg Tablet
20 mg PO DAILY Qty: 0 0RF
rosuvastatin 20 mg tablet
20 mg PO DAILY Qty: 30 5RF
calcium carbonate-vitamin D3 500 mg-3.125 mcg (125 unit) Tablet
1 tab PO DAILY Qty: 0 0RF
Xarelto 15 mg tablet
15 mg PO QPM Qty: 90 5RF
vitamin D13-gtkdr acid
1,000 mcg PO DAILY Qty: 0 0RF
pantoprazole 20 mg tablet,delayed release (DR/EC)
20 mg PO DAILY
Care Plan Goals
Care Plan Goals:
Problem: Readiness for enhanced knowledge related to diagnosis and treatment plan
Goal: Understand your diagnosis and treatment plan needs, including medications if applicable.
Instructions: Know your diagnosis, underlying causes and treatment plan options, including medications if applicable. Consult with your health care team to learn about your diagnosis and treatment plan, including medications if applicable.
Discharge Date and Time
Print Language: UGANDAN
--- NOTE | 2025-03-01 12:25 | PTCARENOTE ---
~0560-2390: Handoff report received from nightshift RN. Pt AOx4, NSR 60s-70s, SBP 160s, RA satting 98%. Pt denies pain at this time. B/L groin dressings CDI. Pt Ax1 with cane in room. Worked with Cardiac rehab this AM and ambulated in fowler,
tolerated well. All needs met at this time, call gallardo within reach.
~9895-0227: DC orders in. Tele pack and PIVs removed from patient. DC paperwork reviewed with patient and family, all quetions answered at this time. VSS. Patient dc'd in stable condition and taken to lobby via wheelchair.
== END 2025-03-01 12:25 | disposition home or self-care (01) | DRG 266 ==
LOC: IVU 04:57
PROVIDERS: Clinical Nurse Specialist Acute Care; Physician Assistant; ADMITTING PHYSICIAN Thoracic Surgery (Cardiothoracic Vascular Surgery); FAMILY PHYSICIAN Family Medicine
PROC: 02RF38Z Replacement of Aortic Valve with Zooplastic Tissue, Percutaneous Approach (ICD-10-PCS; 2025-02-28)
DX: I35.0 Nonrheumatic aortic (valve) stenosis (principal); I50.33 Acute on chronic diastolic (congestive) heart failure; I13.0 Hypertensive heart and chronic kidney disease with heart failure and stage 1 through stage 4 chronic kidney disease, or unspecified chronic kidney disease; D64.9 Anemia, unspecified; N18.32 Chronic kidney disease, stage 3b; E78.5 Hyperlipidemia, unspecified; I48.0 Paroxysmal atrial fibrillation; I44.0 Atrioventricular block, first degree; E86.0 Dehydration; Z88.5 Allergy status to narcotic agent; Z79.01 Long term (current) use of anticoagulants
CPT/HCPCS: 33361; 71045; 80048; 85027; 86900; 86920; 93005; 93308; 93321; 93325; C1760; C1769; C1894